=== PATIENT | male | born 1995 | race Caucasian/White ===

== ENCOUNTER 2022-09-28 22:15 | Emergency (ER) | payer SELFPAY ==
[~2022-09-28] VITALS: Ht 170.2 cm; Wt 59.0 kg
[2022-09-28] MEDS ORDERED: IBUPROFEN 600 MG TAB PO STA (22:33)
[2022-09-28] MEDS ORDERED: ACETAMINOPHEN 325 MG TAB PO ONE (22:45)
[2022-09-28] MEDS ORDERED: BENZONATATE100 MG PO (23:45)
[2022-09-28] MEDS ORDERED: IBUPROFEN800 MG PO (23:45)
[2022-09-28] MEDS ORDERED: MUCINEX DM ER1 EACH PO (23:46)
== END 2022-09-28 23:58 | disposition home or self-care (01) ==
LOC: FSED 22:19
DX: R50.9 Fever, unspecified (principal); J06.9 Acute upper respiratory infection, unspecified; R05.9 Cough, unspecified; F17.290 Nicotine dependence, other tobacco product, uncomplicated
CPT/HCPCS: 87400; 99283